=== PATIENT | female | born 1985 | race Caucasian/White ===

== ENCOUNTER 2017-03-13 15:07 | Emergency (ER) | payer MEDICARE, OTHER ==
[~2017-03-13] VITALS: Ht 167.6 cm; Wt 133.2 kg
[~2017-03-13 15:07] MED LIST: ALLO300T PO; ATOR20TA PO; FINA5TAB4 PO; GLIM2TAB2 PO; INDO50SU PO; METF500T4 PO; SERT100T PO; SITA25TA PO; SPIR50TA2 PO
[2017-03-13 15:16] VITALS: BP 158/90
== END 2017-03-13 16:27 | disposition home or self-care (01) ==
LOC: ED 16:10
DX: H60.92 Unspecified otitis externa, left ear (principal); M10.9 Gout, unspecified; I10 Essential (primary) hypertension; E11.9 Type 2 diabetes mellitus without complications
CPT/HCPCS: 99283

== ENCOUNTER → 2017-05-08 | Outpatient (CLI) | payer MEDICARE | END | disposition home or self-care (01) | LOC: CFH 13:09 | PROVIDERS: ATTEND Obstetrics & Gynecology | DX: N62 Hypertrophy of breast (principal); N63.10 Unspecified lump in the right breast, unspecified quadrant; N63.20 Unspecified lump in the left breast, unspecified quadrant; Z80.3 Family history of malignant neoplasm of breast | CPT/HCPCS: 76642; G0204 ==

== ENCOUNTER 2017-10-24 19:54 | Emergency (ER) | payer OTHER ==
[~2017-10-24] VITALS: Ht 167.6 cm; Wt 126.0 kg
[2017-10-24 19:59] VITALS: BP 143/87
== END 2017-10-24 21:36 | disposition home or self-care (01) ==
LOC: ED 21:25
DX: S63.522A Sprain of radiocarpal joint of left wrist, initial encounter (principal); W01.0XXA Fall on same level from slipping, tripping and stumbling without subsequent striking against object, initial encounter; Y93.89 Activity, other specified; Y92.009 Unspecified place in unspecified non-institutional (private) residence as the place of occurrence of the external cause; Y99.8 Other external cause status
CPT/HCPCS: 29260; 99284

== ENCOUNTER 2018-03-14 17:13 | Emergency (ER) | payer OTHER ==
[~2018-03-14] VITALS: Ht 165.1 cm; Wt 135.0 kg
[~2018-03-14 17:13] MED LIST changes: -METF500T4 PO; +METF500T5 PO; -SPIR50TA2 PO; +SPIR50TA4 PO
[2018-03-14 18:26] VITALS: BP 136/82
== END 2018-03-14 18:30 | disposition home or self-care (01) ==
LOC: ED 18:24
DX: M79.672 Pain in left foot (principal); M25.572 Pain in left ankle and joints of left foot; E11.9 Type 2 diabetes mellitus without complications; I10 Essential (primary) hypertension; M10.9 Gout, unspecified; E66.01 Morbid (severe) obesity due to excess calories; F17.200 Nicotine dependence, unspecified, uncomplicated; Z91.14 Patient's other noncompliance with medication regimen; Z68.42 Body mass index [BMI] 45.0-49.9, adult
CPT/HCPCS: 82962; 99284

== ENCOUNTER 2018-09-01 08:05 | Emergency (ER) | payer OTHER ==
[~2018-09-01] VITALS: Ht 165.1 cm; Wt 133.4 kg
[~2018-09-01 08:05] MED LIST changes: +METF500T17 PO; -METF500T5 PO; +Z-QUIL
[2018-09-01 08:07] VITALS: BP 135/83
--- NOTE | 2018-09-01 08:24 | NUR ---
FIRST CONTACT WITH PT: EDMD at bedside. JUNO. Pt sitting on [facility]. Pt c/o pain and discomfort on right posterior shoulder and right posterior side of neck. Pt states, "I think I just slept wrong on it. I slept on an air mattress the hole beginning of July, I got a hole in it and I have been sleeping on the concrete floor. I did not fall or have an injury." CMS intact, neuro intact. Pt denies cp, sob, loss of bowel or bladder, or loss of sensation. All safety measures in place. NIBP and continous pulse ox on.
[2018-09-01] MEDS ORDERED: CYCLOBENZAPRINE 10 MG TABLET PO ONE (08:30)
[2018-09-01] MEDS ORDERED: KETOROLAC 30 MG/1 ML IM ONE (08:30)
--- NOTE | 2018-09-01 08:33 | NUR ---
Pt ambulates to restroom with steady gait and balance. No defecits observed.
[2018-09-01] MEDS ORDERED: CYCLOBENZAPRINE 10 MG TABLET ONE (08:36)
[2018-09-01] MEDS ORDERED: KETOROLAC 30 MG/1 ML ONE (08:36)
--- NOTE | 2018-09-01 10:18 | NUR ---
Patient given discharge instructions and Rx, they have confirmed that they understand the instructions. Patient ambulatory with steady gait.
== END 2018-09-01 10:29 | disposition home or self-care (01) ==
LOC: ED 09:16
DX: S29.012A Strain of muscle and tendon of back wall of thorax, initial encounter (principal); E11.9 Type 2 diabetes mellitus without complications; I10 Essential (primary) hypertension; E66.01 Morbid (severe) obesity due to excess calories; F32.9 Major depressive disorder, single episode, unspecified; R07.9 Chest pain, unspecified; Z68.42 Body mass index [BMI] 45.0-49.9, adult; X50.1XXA Overexertion from prolonged static or awkward postures, initial encounter; Y93.89 Activity, other specified; Y92.89 Other specified places as the place of occurrence of the external cause; Y99.8 Other external cause status
CPT/HCPCS: 71046; 72125; 96372; 99284; J1885

== ENCOUNTER 2018-12-26 13:18 | Emergency (ER) | payer OTHER ==
[~2018-12-26] VITALS: Ht 167.6 cm; Wt 135.0 kg
[2018-12-26 13:59] LABS: BASOPHILS # (AUTO) 0.02 x10^3/uL (0-0.1); BASOPHILS % (AUTO) 0 % (0-1); EOSINOPHILS # (AUTO) 0.09 x10^3/uL (0-0.4); EOSINOPHILS % (AUTO) 2 % (1-7); LYMPHOCYTES # (AUTO) 1.96 x10^3/uL (1-3.4); LYMPHOCYTES % (AUTO) 37 % (22-44); MD NO; MEAN CORPUSCULAR HEMOGLOBIN 28.4 pg (27.0-34.8); MEAN CORPUSCULAR HGB CONC 33.2 g/dL (32.4-35.8); MEAN CORPUSCULAR VOLUME 85.6 fL (80-100); MONOCYTES # (AUTO) 0.28 x10^3/uL (0.2-0.8); MONOCYTES % (AUTO) 5 % (2-9); NEUTROPHILS # (AUTO) 3.01 x10^3/uL (1.8-6.8); NEUTROPHILS % (AUTO) 56 % (42-75); PLATELET COUNT 210 x10^3/uL (130-400); RED BLOOD COUNT 5.05 x10^6/uL (3.82-5.3); RED CELL DISTRIBUTION WIDTH 13.3 % (9.6-15.2)
[2018-12-26 14:06] LABS: ALANINE AMINOTRANSFERASE 44 U/L (12-78); ALBUMIN 4.1 g/dL (3.4-5.0); ANION GAP 6 mmol/L (5-15); CALCIUM 9.5 mg/dL (8.5-10.1); CHLORIDE 107 mmol/L (98-107); CREATININE 0.91 mg/dL (0.55-1.02)
[2018-12-26 14:08] LABS: ALKALINE PHOSPHATASE 58 U/L (45-117); BILIRUBIN,TOTAL 0.2 mg/dL (0.2-1.0); TOTAL PROTEIN 7.7 g/dL (6.4-8.2)
--- NOTE | 2018-12-26 14:23 | NUR ---
helmet coverer: PT WHEELED BACK FROM LOBBY TO ROOM AT THIS TIME.
[2018-12-26] MEDS ORDERED: KETOROLAC 30 MG/1 ML ONE (14:54)
[2018-12-26] MEDS ORDERED: OXYcodone/APAP 5/325MG TABLET ONE (14:54)
[2018-12-26] MEDS ORDERED: OXYcodone/APAP 5/325MG TABLET PO ONE (15:00)
[2018-12-26] MEDS ORDERED: KETOROLAC 30 MG/1 ML IM ONE (15:00)
--- NOTE | 2018-12-26 15:02 | NUR ---
US AT BEDSIDE, PT MEDICATED PER MAR. PT REQUESTING IVF FOR PAIN, PT EDUCATED IVF DO NOT HELP WITH ABD PAIN. PT UNDERSTANDS
[2018-12-26 15:05] LABS: HCG UR SG 1.022 (1.003-1.030); MICROSCOPIC AUTO
[2018-12-26 15:07] LABS: CULTURE INDICATED? YES
[2018-12-26 15:19] VITALS: BP 143/78
--- NOTE | 2018-12-26 15:34 | NUR ---
PT IN US
== END 2018-12-26 16:22 | disposition home or self-care (01) ==
LOC: ED 16:16
DX: N30.00 Acute cystitis without hematuria (principal); R10.30 Lower abdominal pain, unspecified; I10 Essential (primary) hypertension; E11.9 Type 2 diabetes mellitus without complications; F32.9 Major depressive disorder, single episode, unspecified; E66.01 Morbid (severe) obesity due to excess calories; Z68.42 Body mass index [BMI] 45.0-49.9, adult
CPT/HCPCS: 36415; 76830; 80053; 81001; 81025; 85025; 87077; 87086; 87186; 99284

== ENCOUNTER 2019-03-01 16:14 | Emergency (ER) | payer OTHER ==
[~2019-03-01] VITALS: Ht 165.1 cm; Wt 138.0 kg
[2019-03-01 16:26] VITALS: BP 135/75
== END 2019-03-01 17:22 | disposition home or self-care (01) ==
LOC: ED 17:14
DX: S16.1XXA Strain of muscle, fascia and tendon at neck level, initial encounter (principal); E11.9 Type 2 diabetes mellitus without complications; I10 Essential (primary) hypertension; E66.01 Morbid (severe) obesity due to excess calories; Z68.43 Body mass index [BMI] 50.0-59.9, adult; F17.200 Nicotine dependence, unspecified, uncomplicated; X50.9XXA Other and unspecified overexertion or strenuous movements or postures, initial encounter; Y93.89 Activity, other specified; Y92.89 Other specified places as the place of occurrence of the external cause; Y99.8 Other external cause status
CPT/HCPCS: 96372; 99283; J1885

== ENCOUNTER 2019-06-24 16:48 | Emergency (ER) | payer OTHER ==
[~2019-06-24] VITALS: Ht 167.6 cm; Wt 142.0 kg
[~2019-06-24 16:48] MED LIST changes: -GLIM2TAB2 PO; +GLIM2TAB3 PO
--- NOTE | 2019-06-24 18:42 | NUR ---
PT WITH C/O RECTAL BLEEDING THAT FILLS THE TOILET WHEN SHE GOES TO THE BR, STATES BLOOD IS DARK RED, HAS BEEN GOING ON FOR 1 MONTH. PT DENIES CP, SOB, DIZZINESS PT TO BP, CONT PULSE OX AT THIS TIME
--- NOTE | 2019-06-24 19:06 | NUR ---
Received report from diurnal RN. Assumed patient care. Patient resting comfortably. Provider assessed, awaiting orders.
[2019-06-24 20:23] VITALS: BP 147/76
--- NOTE | 2019-06-24 20:23 | NUR ---
RN to bedside, patient resting comfortably, awaiting exam. Prepped and set up by EMT. Patient denies further needs. Call light at bedside, patient laying supine watching TV.
== END 2019-06-24 21:11 | disposition home or self-care (01) ==
LOC: ED 20:37
DX: K64.4 Residual hemorrhoidal skin tags (principal); K62.5 Hemorrhage of anus and rectum; I10 Essential (primary) hypertension; E11.9 Type 2 diabetes mellitus without complications; M10.9 Gout, unspecified; E66.01 Morbid (severe) obesity due to excess calories; Z87.891 Personal history of nicotine dependence
CPT/HCPCS: 99281

== ENCOUNTER 2019-11-15 16:56 | Emergency (ER) | payer BC, MEDICARE, OTHER ==
[~2019-11-15] VITALS: Ht 167.6 cm; Wt 136.5 kg
[~2019-11-15 16:56] MED LIST changes: -GLIM2TAB3 PO; +GLIM2TAB7 PO
--- NOTE | 2019-11-15 17:15 | NUR ---
ASSUMED CARE OF PATIENT. PATIENT BIB [facility] FOR DIZZINESS. FSBS FOR EMS WAS 395. PT ALSO REPORTS RIGHT SIDED ABD PAIN. PT ON CARDIAC MONTIOR. SINUS TACH NOTED. VS STABLE. NO ACUTE DISTRESS NOTED. PT SEEN BY DR BLACKBURN. CALL LIGHT IN PLACE. WILL CONTINUE TO MONITOR.
[2019-11-15] MEDS ORDERED: SODIUM CHLORIDE 0.9% 1,000ML IVBOLUS ONE ×2 (17:30→18:30)
[2019-11-15] MEDS ORDERED: SODIUM CHLORIDE FLUSH 10ML SYR IVF ONE (17:30)
[2019-11-15] MEDS ORDERED: MECLIZINE CHEWABLE 25 MG TAB PO ONE (17:30)
[2019-11-15 17:33] LABS: BASOPHILS # (AUTO) 0.02 x10^3/uL (0-0.1); BASOPHILS % (AUTO) 0 % (0-1); EOSINOPHILS # (AUTO) 0.09 x10^3/uL (0-0.4); EOSINOPHILS % (AUTO) 1 % (1-7); LYMPHOCYTES # (AUTO) 2.03 x10^3/uL (1-3.4); LYMPHOCYTES % (AUTO) 22 % (22-44); MD NO; MEAN CORPUSCULAR HEMOGLOBIN 29.3 pg (27.0-34.8); MEAN CORPUSCULAR HGB CONC 34.2 g/dL (32.4-35.8); MEAN CORPUSCULAR VOLUME 85.7 fL (80-100); MEAN PLATELET VOLUME 9.7 fL (7.4-10.4); MONOCYTES # (AUTO) 0.44 x10^3/uL (0.2-0.8); MONOCYTES % (AUTO) 5 % (2-9); NEUTROPHILS # (AUTO) 6.55 x10^3/uL (1.8-6.8); NEUTROPHILS % (AUTO) 72 % (42-75); PLATELET COUNT 220 x10^3/uL (130-400); RED BLOOD COUNT 5.63 x10^6/uL (3.82-5.3); RED CELL DISTRIBUTION WIDTH 12.9 % (9.6-15.2)
[2019-11-15] MEDS ORDERED: MECLIZINE CHEWABLE 25 MG TAB ONE (17:35)
[2019-11-15 17:44] LABS: ALANINE AMINOTRANSFERASE 25 U/L (12-78); ALBUMIN 3.8 g/dL (3.4-5.0); ANION GAP 11 mmol/L (5-15); CALCIUM 9.3 mg/dL (8.5-10.1); CHLORIDE 101 mmol/L (98-107); CREATININE 1.51 mg/dL (0.55-1.02)
[2019-11-15 17:48] LABS: ALKALINE PHOSPHATASE 50 U/L (45-117); BILIRUBIN,TOTAL 0.4 mg/dL (0.2-1.0); TOTAL PROTEIN 7.7 g/dL (6.4-8.2)
[2019-11-15 18:06] LABS: ACETONE, SERUM Small (20mg/dL) (Negative)
[2019-11-15] MEDS ORDERED: LEVO1TAB47 PO (18:10)
[2019-11-15] MEDS ORDERED: TRAZ300T2 PO (18:11)
[2019-11-15] MEDS ORDERED: GLIM4TAB8 PO (18:11)
[2019-11-15] MEDS ORDERED: ESCI20TA PO (18:11)
--- NOTE | 2019-11-15 18:43 | NUR ---
UA SENT. PT RESTING IN ROOM. NO ACUTE DISTRESS NOTED. VS STABLE. COLOR BUFFER ON. SINUS TACH NOTED. WILL CONTINUE TO MONITOR.
--- NOTE | 2019-11-15 19:00 | NUR ---
REPORT GIVEN TO DONN OLMEDO
--- NOTE | 2019-11-15 19:14 | NUR ---
REPORT RECEIVED FROM DNON CONDE. ASSUMED CARE OF PT. PT RESTING ON GURNEY. NO DISTRESS NOTED. PT REPORTS RELIEF FROM DIZZINESS. IS NOW C/O KEMP, "FROM LIGHTS". LIGHTS DIMMED FOR COMFORT. WILL DISCUSS MEDS WITH ERP. VITALS ALL STABLE. SECOND LITER INFUSED. FRIEND AT BEDSIDE. CALL LIGHT WIHTIN MELVIN. WILL CONTINUE TO MONITOR.
[2019-11-15 19:16] LABS: MICROSCOPIC INDICATED
[2019-11-15 19:19] LABS: CULTURE INDICATED? YES
--- NOTE | 2019-11-15 19:45 | NUR ---
FLUIDS COMPLETE. ALL VITALS STABLE. WILL CONTINUE TO MONITOR.
[2019-11-15] MEDS ORDERED: ACETAMINOPHEN 500 MG TABLET PO ONE (20:00)
[2019-11-15] MEDS ORDERED: ACETAMINOPHEN 500 MG TABLET ONE (20:27)
[2019-11-15 20:41] VITALS: BP 132/88
--- NOTE | 2019-11-15 20:41 | NUR ---
Patient/Caregiver given discharge instructions and they have confirmed that they understand the instructions. Patient ambulatory with steady gait.
== END 2019-11-15 20:42 | disposition home or self-care (01) ==
LOC: ED 18:22
DX: E11.65 Type 2 diabetes mellitus with hyperglycemia (principal); N30.00 Acute cystitis without hematuria; R00.0 Tachycardia, unspecified; I10 Essential (primary) hypertension; Z87.891 Personal history of nicotine dependence
CPT/HCPCS: 36415; 80053; 81001; 82010; 83690; 84703; 85025; 87086; 93005; 96360; 96361; 99284; J7030; 87077

== ENCOUNTER 2020-05-30 08:30 | Emergency (ER) | payer MEDICARE ==
[~2020-05-30] VITALS: Ht 167.6 cm; Wt 138.2 kg
[~2020-05-30 08:30] MED LIST changes: +ESCI20TA PO; +GLIM4TAB8 PO; +LEVO1TAB47 PO; +TRAZ300T2 PO
--- NOTE | 2020-05-30 09:56 | NUR ---
ATHLETIC MONITOR: PT TO ROOM FROM LOBBY
[2020-05-30] MEDS ORDERED: LIDOCAINE-MPF 1%, 5ML ONE (10:20)
--- NOTE | 2020-05-30 10:21 | NUR ---
LIDOCAINE GIVEN TO ELVIS TORRES FOR ADMINISTRATION
[2020-05-30 10:23] LABS: BASOPHILS % (AUTO) 1 % (0-1); EOSINOPHILS % (AUTO) 1 % (1-7); LYMPHOCYTES % (AUTO) 16 % (22-44); MEAN CORPUSCULAR HEMOGLOBIN 28.6 pg (27.0-34.8); MEAN CORPUSCULAR HGB CONC 33.3 g/dL (32.4-35.8); MEAN PLATELET VOLUME 9.1 fL (7.4-10.4); MONOCYTES % (AUTO) 7 % (2-9); NEUTROPHILS % (AUTO) 75 % (42-75); PLATELET COUNT 165 x10^3/uL (130-400); RED BLOOD COUNT 4.87 x10^6/uL (3.82-5.3); RED CELL DISTRIBUTION WIDTH 14.4 % (9.6-15.2)
[2020-05-30] MEDS ORDERED: LIDOCAINE-MPF 1%, 5ML INFIL ONE (10:30)
--- NOTE | 2020-05-30 10:30 | NUR ---
PT IN LT LATERAL POSITION. C/O PAIN TO LT SIDE OF HEAD R/T POSTERIOR EAR CYST; STATES SWELLING STARTED 3 DAYS AGO. HAS BEEN TAKING ACETAMINOPHEN/IBUPROFEN COMBO MED FOR PAIN W/ RELIEF. AREA SWOLLEN, FIRM, REDDENED. NO DISCHARGE NOTED. PT A&OX4, RESP EVEN & UNLABORED, SPEECH CLEAR, SKIN OTHERWISE WNL.
[2020-05-30 10:33] LABS: MD NO
[2020-05-30 10:35] LABS: ALANINE AMINOTRANSFERASE 35 U/L (12-78); ALBUMIN 3.7 g/dL (3.4-5.0); ANION GAP 9 mmol/L (5-15); CHLORIDE 105 mmol/L (98-107); CREATININE 0.92 mg/dL (0.55-1.02)
[2020-05-30 10:37] LABS: ALKALINE PHOSPHATASE 71 U/L (45-117); BILIRUBIN,TOTAL 0.6 mg/dL (0.2-1.0); TOTAL PROTEIN 7.6 g/dL (6.4-8.2)
--- NOTE | 2020-05-30 13:00 | NUR ---
Maurizio paredes in [facility] - 05/30/20 at 1311 by SHARON PROVIDER AT
[2020-05-30] MEDS ORDERED: SITA1TBM7 PO (13:03)
[2020-05-30 13:30] VITALS: BP 165/66
[2020-05-30] MEDS ORDERED: OXYcodone/APAP 5/325MG TABLET PO ONE (13:30)
[2020-05-30] MEDS ORDERED: OXYcodone/APAP 5/325MG TABLET ONE (13:50)
--- NOTE | 2020-05-30 13:58 | NUR ---
PERCOCET GIVEN. DR BYRNES AT BS TO DISCUSS POC. PT'S MOM IN ROOM.
== END 2020-05-30 14:08 | disposition home or self-care (01) ==
LOC: ED 12:34
DX: H60.11 Cellulitis of right external ear (principal); I10 Essential (primary) hypertension; E11.9 Type 2 diabetes mellitus without complications; M10.9 Gout, unspecified
CPT/HCPCS: 36415; 70480; 80053; 85025; 99284; 99285

== ENCOUNTER 2020-07-24 08:59 | Emergency (ER) | payer MEDICARE ==
[~2020-07-24] VITALS: Ht 167.6 cm; Wt 133.7 kg
[~2020-07-24 08:59] MED LIST changes: +AMOX1TAB12 PO; +SITA1TBM7 PO
--- NOTE | 2020-07-24 09:11 | NUR ---
CONTACT WITH PT, 35 YR OLD FEMALE HERE WITH "SOME REALLY BAD PELVIC PAIN, BEGAN LAST NIGHT AROUND 0200. THIS AM WAS UNBEARABLE, IT FELT LIKE A CYST BURST IN MY OVARIES. I HAV POLYCYSTIC OVARIAN DISEASE. I TOOK TWO TESTS AND THEY WERE NEGATIVE. LMP 3 WEEKS AGO" TRENT LEAL AT BEDSIDE TO KIKO PT Addendum: 07/24/20 at 0934 by REYNALDO DISCUSSED WITH PT, NEED FOR URINE SPECIMAN. "CANT RIGHT NOW. JUST WENT AT HOME TO TAKE A TEST"
[2020-07-24] MEDS ORDERED: ESCI20TA PO (09:20)
[2020-07-24] MEDS ORDERED: ONDANSETRON 2MG/ML, 2ML IVPush ONE (09:30)
[2020-07-24] MEDS ORDERED: SODIUM CHLORIDE FLUSH 10ML SYR IVF ONE (09:30)
[2020-07-24] MEDS ORDERED: MORPHINE SULFATE 4 MG/ML, 1ML IVPush PRN (09:30)
[2020-07-24] MEDS ORDERED: ONDANSETRON 2MG/ML, 2ML ONE (09:36)
[2020-07-24] MEDS ORDERED: MORPHINE SULFATE 4 MG/ML, 1ML ONE (09:36)
--- NOTE | 2020-07-24 09:39 | NUR ---
DR BLACKBURN AT BEDSIDE TO KIKO PT
--- NOTE | 2020-07-24 09:46 | NUR ---
PT MEDICATED FOR 8/10 PAIN. PT WITH RA SATS DECREASED TO 89-90% AFTER ADMININSTRATION OF MORPHINE. PT PLACED OXYGEN AT 2L NC. PT UPDATED ON POC. PTS BOYFRIEND AT BEDSIDE.
[2020-07-24 09:49] LABS: BASOPHILS % (AUTO) 1 % (0-1); EOSINOPHILS % (AUTO) 1 % (1-7); LYMPHOCYTES % (AUTO) 22 % (22-44); MEAN CORPUSCULAR HEMOGLOBIN 29.1 pg (27.0-34.8); MEAN CORPUSCULAR HGB CONC 34.2 g/dL (32.4-35.8); MONOCYTES % (AUTO) 8 % (2-9); NEUTROPHILS % (AUTO) 69 % (42-75); PLATELET COUNT 220 x10^3/uL (130-400); RED BLOOD COUNT 4.73 x10^6/uL (3.82-5.3); RED CELL DISTRIBUTION WIDTH 14.3 % (9.6-15.2)
[2020-07-24 09:52] LABS: MD NO
[2020-07-24 09:58] LABS: ALBUMIN 3.5 g/dL (3.4-5.0); ANION GAP 8 mmol/L (5-15); CALCIUM 10.1 mg/dL (8.5-10.1); CHLORIDE 103 mmol/L (98-107)
[2020-07-24 10:04] LABS: ALANINE AMINOTRANSFERASE 26 U/L (12-78); ALKALINE PHOSPHATASE 73 U/L (45-117); BILIRUBIN,TOTAL 0.6 mg/dL (0.2-1.0); TOTAL PROTEIN 7.8 g/dL (6.4-8.2)
[2020-07-24] MEDS ORDERED: SODIUM CHLORIDE 0.9% 1,000ML IVBOLUS ONE (10:30)
[2020-07-24] MEDS ORDERED: INSULIN SINGLE DOSE, ER ONE (10:36)
[2020-07-24] MEDS ORDERED: KETOROLAC 30 MG/1 ML ONE (10:46)
--- NOTE | 2020-07-24 10:48 | NUR ---
PT WITH PAIN DECREASED TO 5/10 AFTER MORPHINE. PT MEDICATED WITH INSULIN ORDERED. IV FLUIDS INFUSING. PT UNABLE TO PROVIDE URINE SPECIMAN R/T "THEY WANTED ME TO GO WHILE I WAS IN U/S. I CANT GO AGAIN" DISCUSSED WITH PT, THAT SHE IS GETTING FLUDS AND SHOULD HAVE TO GO SOON. TRENT LEAL AT BEDSIDE TO RE-EVAL PT. PT TO BE MEDICATED WITH TORADOL.
[2020-07-24] MEDS ORDERED: INSULIN REGULAR 100 UNITS/ML, 3ML VIAL IVPush ONE (11:00)
[2020-07-24] MEDS ORDERED: INSULIN REGULAR 100 UNITS/ML, 3ML VIAL SQ-INSULIN ONE (11:00)
[2020-07-24] MEDS ORDERED: KETOROLAC 30 MG/1 ML IVPush ONE (11:00)
--- NOTE | 2020-07-24 11:34 | NUR ---
BLOOD SUGAR RECHECK COMPLETED. 1L NS INFUSED. PT WITH PAIN DECREASED TO 3/10. PT UP TO BR FOR URINE SPECIMAN, GAIT STEADY
[2020-07-24 12:04] LABS: MICROSCOPIC AUTO
[2020-07-24] MEDS ORDERED: CEFTRIAXONE PMX 1GM/50ML 50 ML ONE (12:24)
[2020-07-24] MEDS ORDERED: CEFTRIAXONE PMX 1GM/50ML 50 ML IV ONE (12:30)
--- NOTE | 2020-07-24 12:33 | NUR ---
PT LAYING ON GURNEY, NO ACUTE DISTRESS NOTED. IV ABX INFUSING, NO BLOOD CULTURES NEEDED PER DR BLACKBURN. PT AWARE OF TO BE DC'D AFTER ABX INFUSING. NO NEEDS EXPRESSED AT THIS TIME. PTS BOYFRIEND AT BEDSIDE.
--- NOTE | 2020-07-24 13:06 | NUR ---
TASK RN. PT D/C'D PER ORDERS. PT VERBALIZED UNDERSTANDING OF D/C INSTRUCTIONS. PT HAS STEADY GAIT UPON D/C, HAS ALL OWN BELONGINGS.
[2020-07-24 13:07] VITALS: BP 134/81
== END 2020-07-24 13:14 | disposition home or self-care (01) ==
LOC: ED 10:10
DX: N83.201 Unspecified ovarian cyst, right side (principal); N30.00 Acute cystitis without hematuria; L03.115 Cellulitis of right lower limb; B95.62 Methicillin resistant Staphylococcus aureus infection as the cause of diseases classified elsewhere; E11.65 Type 2 diabetes mellitus with hyperglycemia; I10 Essential (primary) hypertension
CPT/HCPCS: 36415; 76830; 80053; 81001; 82962; 84703; 85025; 87086; 87147; 96361; 96365; 96375; 99285; J0696; J1815; J1885; J2270; J2405; J7030

== ENCOUNTER 2020-08-02 08:18 | Emergency (ER) | payer MEDICARE ==
[~2020-08-02] VITALS: Ht 167.6 cm; Wt 132.4 kg
[~2020-08-02 08:18] MED LIST changes: -ESCI20TA PO; +ESCI20TA5 PO
--- NOTE | 2020-08-02 08:36 | NUR ---
TUBING DRIER: URINE COLLECTED AND SENT TO LAB.
--- NOTE | 2020-08-02 08:40 | NUR ---
assumed care of pt. pt here for multiple complaints. pt reports that she is feeling fatigued and that she is having vaginal irritation and painful urination after "so much sex" with her fiance. pt reports that intercourse was painful for her last nocs but that she "pushed through the pain" pt was seen here recently for UTI and reports that she just finished her ABX pt states that she has had no change in vaginal discharge and denies vaginal bleeding. pt reports that she has not been complaint with her control. states that she took a test last week that was negative
--- NOTE | 2020-08-02 08:55 | NUR ---
MD has been to bedside for eval
[2020-08-02 09:09] LABS: BASOPHILS % (AUTO) 1 % (0-1); EOSINOPHILS % (AUTO) 2 % (1-7); LYMPHOCYTES % (AUTO) 31 % (22-44); MD NO; MEAN CORPUSCULAR HEMOGLOBIN 29.3 pg (27.0-34.8); MEAN CORPUSCULAR HGB CONC 34.3 g/dL (32.4-35.8); MEAN PLATELET VOLUME 8.8 fL (7.4-10.4); MONOCYTES % (AUTO) 8 % (2-9); NEUTROPHILS % (AUTO) 60 % (42-75); PLATELET COUNT 222 x10^3/uL (130-400); RED BLOOD COUNT 5.01 x10^6/uL (3.82-5.3); RED CELL DISTRIBUTION WIDTH 14.8 % (9.6-15.2)
--- NOTE | 2020-08-02 09:11 | NUR ---
prep for pelvic exam at bedside
[2020-08-02 09:15] LABS: ALANINE AMINOTRANSFERASE 34 U/L (12-78); ALBUMIN 3.8 g/dL (3.4-5.0); ANION GAP 8 mmol/L (5-15); CALCIUM 9.1 mg/dL (8.5-10.1); CHLORIDE 102 mmol/L (98-107); CREATININE 1.05 mg/dL (0.55-1.02)
[2020-08-02 09:20] LABS: ALKALINE PHOSPHATASE 61 U/L (45-117); BILIRUBIN,TOTAL 0.4 mg/dL (0.2-1.0); TOTAL PROTEIN 7.6 g/dL (6.4-8.2)
[2020-08-02 09:25] LABS: MICROSCOPIC INDICATED
--- NOTE | 2020-08-02 09:35 | NUR ---
pelvic exam completed. pt has redness/iritation to labia and outside of vagina. no lesions or open wounds noted on labia. no D/C noted
[2020-08-02] MEDS ORDERED: ACETAMINOPHEN 500 MG TABLET PO ONE (10:30)
[2020-08-02] MEDS ORDERED: ACETAMINOPHEN 500 MG TABLET ONE (10:32)
[2020-08-02 10:36] VITALS: BP 159/80
--- NOTE | 2020-08-02 11:42 | NUR ---
Patient given discharge instructions and they have confirmed that they understand the instructions. Patient ambulatory with steady gait.
--- NOTE | 2020-08-02 12:06 | NUR ---
this pt was D/C by another RN
== END 2020-08-02 11:44 | disposition home or self-care (01) ==
LOC: ED 09:04
DX: R10.84 Generalized abdominal pain (principal); E11.9 Type 2 diabetes mellitus without complications; N89.8 Other specified noninflammatory disorders of vagina; R10.2 Pelvic and perineal pain; R19.7 Diarrhea, unspecified
CPT/HCPCS: 36415; 80053; 81001; 83690; 84703; 85025; 86592; 87491; 87591; 87806; 99285; G0475

== ENCOUNTER 2020-08-09 21:25 | Emergency (ER) | payer MEDICARE ==
[~2020-08-09] VITALS: Ht 167.6 cm; Wt 134.7 kg
--- NOTE | 2020-08-09 21:39 | NUR ---
Pt to room urine cup with instruct on clean catch. Pt walks to bathroom.
--- NOTE | 2020-08-09 21:47 | NUR ---
Urine collected and sent.
[2020-08-09 22:11] LABS: HCG UR SG 1.036 (1.003-1.030)
[2020-08-09 22:41] LABS: CLUE CELLS NONE SEEN (NONE SEEN); WET PREP WBCS NONE SEEN (FEW)
[2020-08-09 23:02] VITALS: BP 152/66
[2020-08-09] MEDS ORDERED: ACETAMINOPHEN 325 MG TABLET ONE (23:05)
[2020-08-09 23:11] LABS: MICROSCOPIC AUTO
--- NOTE | 2020-08-09 23:12 | NUR ---
PT COMPLAINS OF HEADACHE, MEDICATED WITH TYLENOL PER EMAR
[2020-08-09] MEDS ORDERED: FLUCONAZOLE 100 MG TABLET ONE (23:20)
[2020-08-09] MEDS ORDERED: ACETAMINOPHEN 325 MG TABLET PO ONE (23:30)
[2020-08-09] MEDS ORDERED: FLUCONAZOLE 100 MG TABLET PO ONE (23:30)
== END 2020-08-09 23:45 | disposition home or self-care (01) ==
LOC: ED 22:34
DX: N76.0 Acute vaginitis (principal); R30.0 Dysuria; I10 Essential (primary) hypertension; M10.9 Gout, unspecified; E11.65 Type 2 diabetes mellitus with hyperglycemia; E66.01 Morbid (severe) obesity due to excess calories; Z68.42 Body mass index [BMI] 45.0-49.9, adult
CPT/HCPCS: 81001; 81025; 87086; 87210; 87491; 87591; 87808; 99284

== ENCOUNTER 2020-09-10 12:48 | Emergency (ER) | payer MEDICARE ==
[~2020-09-10] VITALS: Ht 167.6 cm; Wt 136.0 kg
[~2020-09-10 12:48] MED LIST changes: -ESCI20TA5 PO; +ESCI20TA8 PO
--- NOTE | 2020-09-10 14:20 | NUR ---
PT AMBULATED TO RESTROOM WITH STEADY GAIT TO PROVIDE URINE SAMPLE. UA COLLECTED AND SENT TO LAB.
[2020-09-10 14:29] LABS: BASOPHILS % (AUTO) 1 % (0-1); EOSINOPHILS % (AUTO) 2 % (1-7); LYMPHOCYTES % (AUTO) 36 % (22-44); MEAN CORPUSCULAR HEMOGLOBIN 29.5 pg (27.0-34.8); MEAN CORPUSCULAR HGB CONC 34.2 g/dL (32.4-35.8); MEAN PLATELET VOLUME 9.2 fL (7.4-10.4); MONOCYTES % (AUTO) 7 % (2-9); NEUTROPHILS % (AUTO) 55 % (42-75); PLATELET COUNT 198 x10^3/uL (130-400); RED BLOOD COUNT 5.03 x10^6/uL (3.82-5.3); RED CELL DISTRIBUTION WIDTH 14.4 % (9.6-15.2)
[2020-09-10 14:30] LABS: MICROSCOPIC NOT IND
[2020-09-10 14:31] LABS: ALANINE AMINOTRANSFERASE 41 U/L (12-78); ALBUMIN 3.5 g/dL (3.4-5.0); ANION GAP 10 mmol/L (5-15); CALCIUM 8.7 mg/dL (8.5-10.1); CHLORIDE 104 mmol/L (98-107); CREATININE 1.12 mg/dL (0.55-1.02); MD NO
[2020-09-10 14:35] LABS: ALKALINE PHOSPHATASE 60 U/L (45-117); BILIRUBIN,TOTAL 0.3 mg/dL (0.2-1.0); TOTAL PROTEIN 7.3 g/dL (6.4-8.2)
--- NOTE | 2020-09-10 15:09 | NUR ---
Report from DONN Payan.
--- NOTE | 2020-09-10 15:33 | NUR ---
XR at bedside.
--- NOTE | 2020-09-10 15:47 | NUR ---
Pt back from imaging.
[2020-09-10] MEDS ORDERED: MAALOX/HYOSCYAMINE/LIDOCAINE 45 ML BTL ONE (17:29)
[2020-09-10] MEDS ORDERED: MAALOX/HYOSCYAMINE/LIDOCAINE 45 ML BTL PO ONE (17:30)
[2020-09-10 17:33] VITALS: BP 154/84
--- NOTE | 2020-09-10 17:48 | NUR ---
Provided pt work note and taxi voucher. Pt agrees with and understands discharge plan and instructions.
== END 2020-09-10 17:50 | disposition home or self-care (01) ==
LOC: ED 13:45
DX: R10.31 Right lower quadrant pain (principal); R10.32 Left lower quadrant pain; M54.5 Low back pain; I10 Essential (primary) hypertension; E11.9 Type 2 diabetes mellitus without complications; M10.9 Gout, unspecified; F17.200 Nicotine dependence, unspecified, uncomplicated
CPT/HCPCS: 36415; 74021; 80053; 81003; 83690; 84703; 85025; 99284

== ENCOUNTER 2020-10-10 14:03 | Emergency (ER) | payer MEDICARE, OTHER ==
[~2020-10-10] VITALS: Ht 167.6 cm; Wt 131.0 kg
[2020-10-10 14:31] VITALS: BP 113/79
[2020-10-10] MEDS ORDERED: IBUPROFEN 600 MG TABLET ONE (15:27)
[2020-10-10] MEDS ORDERED: IBUPROFEN 600 MG TABLET PO ONE (15:30)
== END 2020-10-10 16:30 | disposition home or self-care (01) ==
LOC: ED 16:20
DX: M25.511 Pain in right shoulder (principal); F17.210 Nicotine dependence, cigarettes, uncomplicated; I10 Essential (primary) hypertension; E11.65 Type 2 diabetes mellitus with hyperglycemia; E66.01 Morbid (severe) obesity due to excess calories; Z68.42 Body mass index [BMI] 45.0-49.9, adult
CPT/HCPCS: 99283

== ENCOUNTER 2020-10-14 21:24 | Emergency (ER) | payer MEDICARE, OTHER ==
[~2020-10-14] VITALS: Ht 167.6 cm; Wt 133.5 kg
[2020-10-14] MEDS ORDERED: LIDOCAINE-MPF 1%, 5ML ONE (21:55)
--- NOTE | 2020-10-14 21:58 | NUR ---
Lido at bedside.
[2020-10-14] MEDS ORDERED: LIDOCAINE 1%, 10ML INFIL ONE (22:00)
[2020-10-14] MEDS ORDERED: LIDOCAINE-MPF 1%, 2ML INFIL ONE (22:00)
--- NOTE | 2020-10-14 22:14 | NUR ---
Pt requested to be "knocked out" for procedure, informed pt we do not do that for this type of procedure.
--- NOTE | 2020-10-14 23:07 | NUR ---
Procedure done, wrapped by CESSPOOL CLEANER, pt requesting pain medication prior to dc.
[2020-10-14] MEDS ORDERED: IBUPROFEN 800 MG TABLET ONE (23:20)
[2020-10-14 23:22] VITALS: BP 142/77
--- NOTE | 2020-10-14 23:22 | NUR ---
TASK RN: PT MEDICATED PER EMAR
[2020-10-14] MEDS ORDERED: IBUPROFEN 800 MG TABLET PO ONE (23:30)
== END 2020-10-14 23:45 | disposition home or self-care (01) ==
LOC: ED 21:45
DX: L03.011 Cellulitis of right finger (principal); E11.9 Type 2 diabetes mellitus without complications; E66.01 Morbid (severe) obesity due to excess calories; Z68.42 Body mass index [BMI] 45.0-49.9, adult
CPT/HCPCS: 10060

== ENCOUNTER 2020-10-17 13:00 | Emergency (ER) | payer MEDICARE ==
[~2020-10-17] VITALS: Ht 167.6 cm; Wt 133.1 kg
[2020-10-17 13:06] VITALS: BP 147/86
--- NOTE | 2020-10-17 14:07 | NUR ---
PT TO RM FROM LOBBY
--- NOTE | 2020-10-17 14:47 | NUR ---
PT SITTING UP ON [employer] WATCHING SHOW ON PHONE W/ FAMILY. PT RESTING ON [employer] W/ CALL LIGHT IN REACH AND SIDE RAILS UPX2. RESP EVEN AND UNLABORED, JUNO.
[2020-10-17] MEDS ORDERED: NEOSPORIN OINT. PKT 1 PACKET ONE (15:06)
--- NOTE | 2020-10-17 15:13 | NUR ---
PT REQUESTING TO LEAVE BEFORE DC PPWK PRINTED. PT AMBULATORY W/ A STEADY GAIT. RESP EVEN AND UNLABORED, REEMAN.
== END 2020-10-17 15:18 | disposition home or self-care (01) ==
LOC: ED 15:05
DX: Z48.01 Encounter for change or removal of surgical wound dressing (principal); I10 Essential (primary) hypertension; E66.01 Morbid (severe) obesity due to excess calories; Z68.42 Body mass index [BMI] 45.0-49.9, adult; M10.9 Gout, unspecified; E11.65 Type 2 diabetes mellitus with hyperglycemia
CPT/HCPCS: 99282

== ENCOUNTER 2020-11-06 12:45 | Emergency (ER) | payer MEDICARE ==
[~2020-11-06] VITALS: Ht 172.7 cm; Wt 138.0 kg
--- NOTE | 2020-11-06 13:06 | NUR ---
REPORT FROM ELIZABETH POP, ASSUME CARE OF PT AT THIS TIME.
[2020-11-06] MEDS ORDERED: HYDROcodone/APAP 5/325 TABLET PO ONE (13:30)
[2020-11-06 13:31] LABS: MICROSCOPIC NOT IND
[2020-11-06] MEDS ORDERED: HYDROcodone/APAP 5/325 TABLET ONE (14:05)
--- NOTE | 2020-11-06 14:08 | NUR ---
PT MEDICATED PER ERP ORDER FOR 5/10 VAGINAL/PERIAREA PAIN. AWAITING PELVIC LAB RESULTS. LAB IN TO DRAW BLOOD. CALL LIGHT WITHIN REACH, AT BS.
[2020-11-06 14:16] LABS: CLUE CELLS NONE SEEN (NONE SEEN); WET PREP WBCS FEW (FEW)
[2020-11-06 14:24] LABS: BASOPHILS % (AUTO) 1 % (0-1); EOSINOPHILS % (AUTO) 2 % (1-7); LYMPHOCYTES % (AUTO) 35 % (22-44); MEAN CORPUSCULAR HEMOGLOBIN 28.6 pg (27.0-34.8); MONOCYTES % (AUTO) 8 % (2-9); NEUTROPHILS % (AUTO) 55 % (42-75); PLATELET COUNT 193 x10^3/uL (130-400); RED BLOOD COUNT 5.16 x10^6/uL (3.82-5.3); RED CELL DISTRIBUTION WIDTH 13.5 % (9.6-15.2)
[2020-11-06 14:26] LABS: MD NO
[2020-11-06 14:32] LABS: ANION GAP 8 mmol/L (5-15); CALCIUM 9.3 mg/dL (8.5-10.1); CHLORIDE 99 mmol/L (98-107); CREATININE 0.91 mg/dL (0.55-1.02)
--- NOTE | 2020-11-06 14:44 | NUR ---
ALL RESULTS BACK, PT FOR RECHECK.
[2020-11-06] MEDS ORDERED: FLUCONAZOLE 50 MG TABLET PO ONE (16:00)
[2020-11-06 16:01] VITALS: BP 132/68
[2020-11-06] MEDS ORDERED: FLUCONAZOLE 100 MG TABLET ONE (16:04)
[2020-11-06] MEDS ORDERED: metroNIDAZOLE 500 MG TABLET ONE (16:04)
[2020-11-06] MEDS ORDERED: metroNIDAZOLE 500 MG TABLET PO ONE (16:30)
== END 2020-11-06 16:08 | disposition home or self-care (01) ==
LOC: ED 16:02
DX: B37.9 Candidiasis, unspecified (principal); B37.3 Candidiasis of vulva and vagina; E11.65 Type 2 diabetes mellitus with hyperglycemia; I10 Essential (primary) hypertension; F17.200 Nicotine dependence, unspecified, uncomplicated; M10.9 Gout, unspecified
CPT/HCPCS: 36415; 80048; 81003; 85025; 87210; 87491; 87591; 87808; 99284

== ENCOUNTER 2020-11-19 23:21 | Emergency (ER) | payer MEDICARE ==
[~2020-11-19] VITALS: Ht 167.6 cm; Wt 133.0 kg
[2020-11-19 23:23] VITALS: BP 150/82
--- NOTE | 2020-11-19 23:30 | NUR ---
PT BIB [facility] C/O PAIN TO LEFT AND RIGHT LOWER ABD PAIN. PT STATES SHE HAD CYSTS RUPTURE BEFORE AND THATS HOW IT FEELS NOW. HAS IV STARTED BY EMS IN LEFT AC. ON CR MONITOR.
[2020-11-20] MEDS ORDERED: KETOROLAC 60 MG/2 ML IM ONE
[2020-11-20] MEDS ORDERED: KETOROLAC 60 MG/2 ML ONE (00:11)
--- NOTE | 2020-11-20 00:15 | NUR ---
PT TAKEN TO ULTRASOUND TESTS. AFTER UTILITIES MANAGER TO ROOM TO DRAW BLOOD. PT IN GOOD SPIRITS ON HER PHONE TEXTING WITH PRIOR TO ULTRASOUND.
[2020-11-20 00:18] LABS: BASOPHILS % (AUTO) 1 % (0-1); EOSINOPHILS % (AUTO) 2 % (1-7); LYMPHOCYTES % (AUTO) 36 % (22-44); MEAN CORPUSCULAR HGB CONC 34.2 g/dL (32.4-35.8); MEAN PLATELET VOLUME 9.3 fL (7.4-10.4); MONOCYTES % (AUTO) 9 % (2-9); NEUTROPHILS % (AUTO) 52 % (42-75); PLATELET COUNT 182 x10^3/uL (130-400); RED BLOOD COUNT 5.04 x10^6/uL (3.82-5.3); RED CELL DISTRIBUTION WIDTH 13.9 % (9.6-15.2)
[2020-11-20 00:20] LABS: MD NO
[2020-11-20 00:27] LABS: ALANINE AMINOTRANSFERASE 48 U/L (12-78); ALBUMIN 3.6 g/dL (3.4-5.0); ANION GAP 10 mmol/L (5-15); CALCIUM 8.5 mg/dL (8.5-10.1); CHLORIDE 101 mmol/L (98-107); CREATININE 1.02 mg/dL (0.55-1.02)
[2020-11-20 00:32] LABS: ALKALINE PHOSPHATASE 67 U/L (45-117); BILIRUBIN,TOTAL 0.4 mg/dL (0.2-1.0)
--- NOTE | 2020-11-20 00:39 | NUR ---
PT BACK FROM ULTRASOUND. MEDS GIVEN.
--- NOTE | 2020-11-20 01:49 | NUR ---
F/U AND D/C INSTRUCTIONS GIVEN TO PT AND SHE V/U. PT D/C'D AMBULATORY AND IN NO ACUTE DISTRESS.
== END 2020-11-20 01:52 | disposition home or self-care (01) ==
LOC: ED 23:35
DX: R10.31 Right lower quadrant pain (principal); R10.2 Pelvic and perineal pain; I10 Essential (primary) hypertension; E11.65 Type 2 diabetes mellitus with hyperglycemia; E66.01 Morbid (severe) obesity due to excess calories; Z68.42 Body mass index [BMI] 45.0-49.9, adult
CPT/HCPCS: 36415; 76830; 80053; 84703; 85025; 96372; 99284; J1885

== ENCOUNTER 2020-12-25 11:47 | Emergency (ER) | payer MEDICARE ==
[~2020-12-25] VITALS: Ht 167.6 cm; Wt 132.2 kg
[2020-12-25 11:51] VITALS: BP 147/78
[2020-12-25 13:01] LABS: PH, VENOUS 7.369 pH (7.320-7.420)
[2020-12-25 13:02] LABS: O2 FLOW ROOM AIR L/min
[2020-12-25 13:06] LABS: ALANINE AMINOTRANSFERASE 49 U/L (12-78); ALBUMIN 3.6 g/dL (3.4-5.0); ANION GAP 10 mmol/L (5-15); CHLORIDE 102 mmol/L (98-107); CREATININE 0.98 mg/dL (0.55-1.02)
[2020-12-25 13:08] LABS: ALKALINE PHOSPHATASE 68 U/L (45-117); BILIRUBIN,TOTAL 0.4 mg/dL (0.2-1.0); TOTAL PROTEIN 7.2 g/dL (6.4-8.2)
[2020-12-25 13:13] LABS: BASOPHILS % (AUTO) 1 % (0-1); EOSINOPHILS % (AUTO) 2 % (1-7); LYMPHOCYTES % (AUTO) 35 % (22-44); MD NO; MEAN CORPUSCULAR HEMOGLOBIN 29.1 pg (27.0-34.8); MEAN PLATELET VOLUME 9.3 fL (7.4-10.4); MONOCYTES % (AUTO) 8 % (2-9); NEUTROPHILS % (AUTO) 55 % (42-75); PLATELET COUNT 164 x10^3/uL (130-400); RED BLOOD COUNT 5.03 x10^6/uL (3.82-5.3); RED CELL DISTRIBUTION WIDTH 14.1 % (9.6-15.2)
[2020-12-25 13:17] LABS: ACETONE, SERUM Small (20mg/dL) (Negative)
--- NOTE | 2020-12-25 13:45 | NUR ---
PT AMBULATED TO RESTROOM WITH STEADY GAIT TO PROVIDE URINE SAMPLE. UA COLLECTED AND SENT TO LAB.
[2020-12-25 13:59] LABS: MICROSCOPIC AUTO
--- NOTE | 2020-12-25 14:02 | NUR ---
ALL RESULTS ARE BACK AT THIS TIME. CHART UP FOR RECHECK.
[2020-12-25] MEDS ORDERED: FLUCONAZOLE 100 MG TABLET PO ONE (14:30)
[2020-12-25] MEDS ORDERED: FLUCONAZOLE 100 MG TABLET ONE (14:36)
== END 2020-12-25 14:56 | disposition home or self-care (01) ==
LOC: ED 12:02
DX: N30.01 Acute cystitis with hematuria (principal); B37.3 Candidiasis of vulva and vagina; E11.65 Type 2 diabetes mellitus with hyperglycemia; I10 Essential (primary) hypertension; E78.5 Hyperlipidemia, unspecified; E66.01 Morbid (severe) obesity due to excess calories; Z68.42 Body mass index [BMI] 45.0-49.9, adult
CPT/HCPCS: 36415; 80053; 81001; 82010; 82803; 85025; 87077; 87086; 87147; 87186; 99283

== ENCOUNTER 2021-02-09 13:42 | Emergency (ER) | payer MEDICARE ==
[~2021-02-09] VITALS: Ht 167.6 cm; Wt 129.2 kg
[2021-02-09] MEDS ORDERED: LIDOCAINE 2%,20 ML JEL.PF.APP MM ONE ×2 (14:18→14:30)
--- NOTE | 2021-02-09 14:58 | NUR ---
This RN at bedside to charito alston.
[2021-02-09] MEDS ORDERED: MORPHINE SULFATE 4 MG/ML, 1ML ONE ×2 (15:12→16:18)
--- NOTE | 2021-02-09 15:18 | NUR ---
BREAK RN: PT BACK FROM CT. DRESSING MACHINE OPERATOR PER SEP.
[2021-02-09] MEDS ORDERED: OMNIPAQUE 350 MG/ML, 100ML BOTTLE ONE (15:21)
[2021-02-09 15:30] LABS: HCG UR SG 1.035 (1.003-1.030); MICROSCOPIC AUTO
[2021-02-09] MEDS ORDERED: morphine SULFATE 10 MG/ML, 1ML IVPush ONE (15:30)
[2021-02-09 15:35] LABS: BASOPHILS % (AUTO) 1 % (0-1); EOSINOPHILS % (AUTO) 1 % (1-7); LYMPHOCYTES % (AUTO) 32 % (22-44); MEAN CORPUSCULAR HEMOGLOBIN 29.1 pg (27.0-34.8); MEAN CORPUSCULAR HGB CONC 33.8 g/dL (32.4-35.8); MEAN PLATELET VOLUME 9.4 fL (7.4-10.4); MONOCYTES % (AUTO) 7 % (2-9); NEUTROPHILS % (AUTO) 59 % (42-75); PLATELET COUNT 178 x10^3/uL (130-400); RED BLOOD COUNT 5.37 x10^6/uL (3.82-5.3); RED CELL DISTRIBUTION WIDTH 14.2 % (9.6-15.2)
[2021-02-09 15:38] LABS: ALANINE AMINOTRANSFERASE 44 U/L (12-78); ALBUMIN 3.8 g/dL (3.4-5.0); ANION GAP 7 mmol/L (5-15); CALCIUM 9.3 mg/dL (8.5-10.1); CHLORIDE 102 mmol/L (98-107)
[2021-02-09 15:41] LABS: ALKALINE PHOSPHATASE 67 U/L (45-117); BILIRUBIN,TOTAL 0.5 mg/dL (0.2-1.0); CREATININE 0.95 mg/dL (0.55-1.02); TOTAL PROTEIN 7.7 g/dL (6.4-8.2)
[2021-02-09 15:49] LABS: CLUE CELLS NONE SEEN (NONE SEEN); WET PREP WBCS FEW (FEW)
--- NOTE | 2021-02-09 15:51 | NUR ---
BREAK RN: ALL RESULTS ARE BACK AT THIS TIME. CHART UP FOR RECHECK. REPORT BACK TO PRIMARY RN, RIVERA.
[2021-02-09] MEDS ORDERED: MORPHINE SULFATE 4 MG/ML, 1ML IVPush ONE (16:30)
[2021-02-09 16:58] VITALS: BP 145/74
== END 2021-02-09 17:14 | disposition home or self-care (01) ==
LOC: ED 14:12
DX: N30.00 Acute cystitis without hematuria (principal); N76.1 Subacute and chronic vaginitis; E11.65 Type 2 diabetes mellitus with hyperglycemia; E78.5 Hyperlipidemia, unspecified; Z88.0 Allergy status to penicillin
CPT/HCPCS: 36415; 72193; 80053; 81001; 81025; 85025; 87077; 87086; 87210; 87808; 96374; 96376; 99285; J2270; Q9967; 87186

== ENCOUNTER 2021-02-14 17:15 | Emergency (ER) | payer MEDICARE ==
[~2021-02-14] VITALS: Ht 167.6 cm; Wt 131.8 kg
[2021-02-14 20:06] VITALS: BP 176/89
[2021-02-14 20:49] LABS: BASOPHILS % (AUTO) 1 % (0-1); EOSINOPHILS % (AUTO) 1 % (1-7); LYMPHOCYTES % (AUTO) 30 % (22-44); MEAN CORPUSCULAR HEMOGLOBIN 29.4 pg (27.0-34.8); MEAN PLATELET VOLUME 9.2 fL (7.4-10.4); MONOCYTES % (AUTO) 6 % (2-9); NEUTROPHILS % (AUTO) 61 % (42-75); PLATELET COUNT 204 x10^3/uL (130-400); RED BLOOD COUNT 5.21 x10^6/uL (3.82-5.3); RED CELL DISTRIBUTION WIDTH 14.4 % (9.6-15.2)
[2021-02-14 20:56] LABS: ALBUMIN 3.6 g/dL (3.4-5.0); ANION GAP 7 mmol/L (5-15); CALCIUM 8.7 mg/dL (8.5-10.1); CHLORIDE 103 mmol/L (98-107); CREATININE 1.03 mg/dL (0.55-1.02)
--- NOTE | 2021-02-14 21:45 | NUR ---
PIT LABORER: PT LEFT AMA
== END 2021-02-14 21:46 | disposition left against medical advice (07) ==
LOC: ED 18:00
DX: R10.30 Lower abdominal pain, unspecified (principal)
CPT/HCPCS: 36415; 80048; 82040; 84703; 85025; 99283

== ENCOUNTER 2021-02-23 09:58 | Emergency (ER) | payer MEDICARE ==
[~2021-02-23] VITALS: Ht 167.6 cm; Wt 131.6 kg
[2021-02-23 10:00] VITALS: BP 163/82
--- NOTE | 2021-02-23 10:43 | NUR ---
FLORIST: PT TO ROOM FROM PANCH[facility]O FRYE
--- NOTE | 2021-02-23 10:50 | NUR ---
PATIENT WALKED BACK FROM LOBBY WITH CHIEF C/O SINUS PRESSURE X2 WEEKS. PATIENT REPORTS KEMP, CONGESTION AND COUGH. DENIES FEVER, N/V/D. REFERRED BY PCP TO GET TESTED FOR COVID. NADN, CALL LIGHT WITHIN REACH.
--- NOTE | 2021-02-23 11:31 | NUR ---
COVID SWAB BY ERP, PENDING.
== END 2021-02-23 11:57 | disposition home or self-care (01) ==
LOC: ED 11:12
DX: J01.01 Acute recurrent maxillary sinusitis (principal); Z20.822 Contact with and (suspected) exposure to COVID-19; E78.5 Hyperlipidemia, unspecified; E11.65 Type 2 diabetes mellitus with hyperglycemia; I10 Essential (primary) hypertension; E66.01 Morbid (severe) obesity due to excess calories; Z68.42 Body mass index [BMI] 45.0-49.9, adult
CPT/HCPCS: 99283; U0003; U0005

== ENCOUNTER 2021-03-04 12:38 | Emergency (ER) | payer MEDICARE ==
[~2021-03-04] VITALS: Ht 167.6 cm; Wt 130.0 kg
--- NOTE | 2021-03-04 15:06 | NUR ---
EDUCATION ANALYST: PT TO ROOM FROM LOBBY
[2021-03-04] MEDS ORDERED: CYCLOBENZAPRINE 10 MG TABLET ONE (16:47)
[2021-03-04] MEDS ORDERED: KETOROLAC 30 MG/1 ML ONE (16:47)
[2021-03-04] MEDS ORDERED: DIAZEPAM 5 MG TABLET ONE (16:47)
[2021-03-04] MEDS ORDERED: SODIUM CHLORIDE FLUSH 10ML SYR IVF ONE (17:00)
[2021-03-04] MEDS ORDERED: KETOROLAC 30 MG/1 ML IVPush ONE (17:00)
[2021-03-04] MEDS ORDERED: CYCLOBENZAPRINE 10 MG TABLET PO ONE (17:00)
[2021-03-04] MEDS ORDERED: DIAZEPAM 5 MG TABLET PO ONE (17:00)
--- NOTE | 2021-03-04 17:15 | NUR ---
pt presents to ED with c/o back pain to whole back, upper and lower bilaterally, states this is chronic but became worse several days ago when lifting a heavy object at work. denies bowel/bladder dysfunction. pt a&o, resps even and unlabored. medicated per emar, changed order for toradol from iv to im. pt tolerated well, awaiting dc paperwork from md at this time.
[2021-03-04 17:54] VITALS: BP 152/91
--- NOTE | 2021-03-04 17:59 | NUR ---
pt reports complete symptom relief, states she is ready to go home. md informed.
[2021-03-04] MEDS ORDERED: KETOROLAC 30 MG/1 ML IM ONE (18:00)
--- NOTE | 2021-03-04 18:09 | NUR ---
PT REQUESTING DC, MD AWARE. PT REFUSING TO STAY TO AWAIT DC PAPERWORK FROM . PT A&O, RESPS EVEN AND UNLABORED, AMBULATORY TO DC WITH STEADY GAIT. PT EDUCATED NOT TO DRIVE TODAY D/T SEDATIVE EFFECTS OF MED. PT TAKING TAXI HOME.
== END 2021-03-04 18:10 | disposition home or self-care (01) ==
LOC: ED 15:31
DX: M54.5 Low back pain (principal); I10 Essential (primary) hypertension; E11.9 Type 2 diabetes mellitus without complications; E78.5 Hyperlipidemia, unspecified; E66.01 Morbid (severe) obesity due to excess calories; Z68.42 Body mass index [BMI] 45.0-49.9, adult
CPT/HCPCS: 72110; 96372; 99284; J1885; J7512